=== PATIENT | male | born 1950 | race Caucasian/White ===

== ENCOUNTER 2018-01-26 20:48 | Emergency (ER) | payer OTHER ==
[~2018-01-26 20:48] MED LIST: ASPI-1005 PO; CLOP75TA14 PO; LISI-617 PO; SIMV10TA6 PO
[2018-01-26 21:31] LABS: BASOPHILS % (AUTO) 0.3 % (0.0-5.0); EOSINOPHILS % (AUTO) 3.8 % (0.0-8.0); HEMATOCRIT 38.2 % (42-54); LYMPHOCYTES % (AUTO) 26.8 % (21.0-51.0); MEAN CORPUSCULAR HEMOGLOBIN 31.9 pg (27.0-33.0); MEAN CORPUSCULAR HGB CONC 34.1 g/dL (32.0-36.0); MEAN CORPUSCULAR VOLUME 93.6 fL (79-99); MONOCYTES % (AUTO) 11.3 % (3.0-13.0); NEUTROPHILS % (AUTO) 57.8 % (40.0-77.0); NUCLEATED RED BLOOD CELLS 0.1 % (0.0-0.19); PLATELET COUNT (AUTO) 264 K/uL (130-400); RED BLOOD CELL COUNT(AUTO) 4.08 MIL/uL (4.50-6.20); RED CELL DISTRIBUTION WIDTH 13.6 % (11.0-15.5); WHITE BLOOD COUNT (AUTO) 11.1 K/uL (4.8-10.8)
[2018-01-26 21:45] LABS: CREATININE 1.1 mg/dL (0.5-1.5); POTASSIUM 3.4 mmol/L (3.5-5.1)
[2018-01-26 21:49] LABS: ALBUMIN 3.5 g/dL (3.5-5.0); BILIRUBIN,TOTAL 0.4 mg/dL (0.2-1.0)
[2018-01-26 22:10] LABS: INR 0.93 (0.85-1.15); PARTIAL THROMBOPLASTIN TIME 38.7 SEC (26.3-35.5); PROTHROMBIN TIME 9.8 SEC (9.6-11.6)
== END 2018-01-26 22:07 | disposition home or self-care (01) ==
LOC: EDH 20:48
DX: I10 Essential (primary) hypertension (principal); E78.5 Hyperlipidemia, unspecified; Z85.09 Personal history of malignant neoplasm of other digestive organs; Z79.01 Long term (current) use of anticoagulants
CPT/HCPCS: 36415; 71045; 80053; 83605; 85025; 85610; 85730; 87040; 87804; 93005

== ENCOUNTER → 2019-07-05 | Outpatient (CLI) | payer OTHER ==
[~2019-07-05] VITALS: Ht 188 cm; Wt 99.8 kg
[~2019-07-05] MED LIST changes: -ASPI-1005 PO; +ASPI-1181 PO; +ATOR20TA65 PO; +CARAL PO; +CARV6.25 PO; -CLOP75TA14 PO; +DILT180C89 PO; +DRON400T2 PO; +ESOM40CA54 PO; +FLUT16H NASAL; +FLUT1DIS5 IH; +FURO40TA5 PO; +IOHEXOL 350 MG/ML 100ML INFUS..BTL IV ONE; -LISI-617 PO; +MONT10TA26 PO; +NICO4GUM35 BC; +OLME20TA22 PO; +RIVA20TA PO; +ROFL250T PO; +ROFL500T PO; -SIMV10TA6 PO; +SIMV5TAB58 PO; +TIOT18CA3 IH
[2019-07-05 12:00] VITALS: BP 131/83
== END | disposition home or self-care (01) ==
LOC: RAH 09:21
PROVIDERS: ATTEND Internal Medicine Cardiovascular Disease
DX: I48.0 Paroxysmal atrial fibrillation (principal); J43.2 Centrilobular emphysema; J98.11 Atelectasis
CPT/HCPCS: 71275; Q9967 ×2

== ENCOUNTER 2019-07-07 05:38 | Observation (INO) | payer OTHER ==
[2019-07-05 11:56] LABS: BASOPHILS % (AUTO) 1.3 % (0.0-5.0); EOSINOPHILS % (AUTO) 2.4 % (0.0-8.0); HEMATOCRIT 41.2 % (42-54); LYMPHOCYTES % (AUTO) 26.7 % (21.0-51.0); MEAN CORPUSCULAR HEMOGLOBIN 31.9 pg (27.0-33.0); MEAN CORPUSCULAR HGB CONC 33.3 g/dL (32.0-36.0); MONOCYTES % (AUTO) 12.3 % (3.0-13.0); NEUTROPHILS % (AUTO) 57.1 % (40.0-77.0); PLATELET COUNT (AUTO) 278 K/uL (130-400); RED BLOOD CELL COUNT(AUTO) 4.29 MIL/uL (4.50-6.20); RED CELL DISTRIBUTION WIDTH 13.3 % (11.0-15.5)
[2019-07-05 13:15] LABS: CREATININE 1.6 mg/dL (0.5-1.5); POTASSIUM 4.2 mmol/L (3.5-5.1)
[2019-07-06 12:00] VITALS: BP 131/83
--- NOTE | 2019-07-06 13:20 | NUR ---
RE: ABNORMAL LABS REPORTED ABNORMAL LABS (BUN 25, CREAT 1.6 AND H/H 13.7/41.2) TO MAGGIE FARAH. PER CELINE, NO NEW ORDERS. OK TO PROCEED WITH ABLATION SCHEDULED.
[2019-07-07] VITALS (20 sets, daily range): BP systolic 114–153; BP diastolic 67–91
[~2019-07-07 05:38] MED LIST changes: -ASPI-1181 PO; -CARAL PO; -FLUT1DIS5 IH; -IOHEXOL 350 MG/ML 100ML INFUS..BTL IV ONE; -OLME20TA22 PO; -ROFL500T PO; -SIMV5TAB58 PO; -TIOT18CA3 IH
--- NOTE | 2019-07-07 06:52 | NUR ---
POTENTIAL FOR INFECTION: SHAVED FROM UMBILICUS TO BILATERAL GROIN AND BILATERAL KNEE PER AIME HATHAWAY.
[2019-07-07 06:57] LABS: INR 1.03 (0.85-1.15); PARTIAL THROMBOPLASTIN TIME 41.2 SEC (26.3-35.5); PROTHROMBIN TIME 11.1 SEC (9.6-11.6)
[2019-07-07] MEDS: SODIUM CHLORIDE 0.9% 1000ML 1,000 ML IV SCH ×2 (07:05→15:05)
--- NOTE | 2019-07-07 07:05 | NUR ---
POTENTIAL FOR INFECTION: WIPED FROM UMBILICUS AREA TO BILATERAL GROIN AND KNEE WITH URIAH: 2% CHLORHEXIDINE GLUCONATE CLOTH PATIENTS PRE-OP SKIN PREP PER AIME HATHAWAY.
[2019-07-07] MEDS ORDERED: ONDANSETRON HCL 4 MG/2 ML VIAL ONE (07:11)
[2019-07-07] MEDS ORDERED: PHENYLEPHRINE HCL 10 MG/ML 1ML VIAL IV ONE ×4 (07:11→09:46)
[2019-07-07] MEDS ORDERED: MIDAZOLAM HCL 1 MG/ML 2ML VIAL ONE (07:11)
[2019-07-07] MEDS ORDERED: LIDOCAINE PF 2% 5ML ABBOJECT ONE (07:11)
[2019-07-07] MEDS ORDERED: PROPOFOL 10 MG/ML 20ML VIAL IV ONE (07:12)
[2019-07-07] MEDS ORDERED: ROCURONIUM 10MG/1ML SYR 10 MG/ML ML ONE (07:12)
[2019-07-07] MEDS ORDERED: LIDOCAINE HCL 2% 20ML ONE (07:45)
[2019-07-07] MEDS ORDERED: FENTANYL CITRATE PF 50 MCG/1 ML 2ML VIAL ONE (07:59)
[2019-07-07] MEDS ORDERED: HEPARIN SODIUM 1000UNIT/ML 10ML VIAL ONE ×2 (08:01→08:44)
[2019-07-07] MEDS ORDERED: ATROPINE SULFATE 0.4 MG/ML 1 ML VIAL IJ ONE (08:42)
[2019-07-07] MEDS ORDERED: EPINEPHRINE 1 MG/ML AMPULE ONE (08:43)
[2019-07-07] MEDS ORDERED: GLYCOPYRROLATE 1 MG/5 ML SYRINGE ONE (08:50)
[2019-07-07] MEDS ORDERED: ISOPROTERENOL HCL 0.2 MG/ML AMP/VIAL/BAG ONE (08:56)
[2019-07-07] MEDS ORDERED: PROTAMINE SULFATE 10 MG/ML 25ML VIAL IV ONE (11:54)
[2019-07-07] MEDS ORDERED: NEOSTIGMINE 5MG/5ML SYR IV ONE (12:29)
[2019-07-07] MEDS ORDERED: ACETAMINOPHEN-CODEINE 300/30MG TAB PO PRN (14:30)
--- NOTE | 2019-07-07 14:30 | NUR ---
STATUS PT RECEIVED FROM TARIFF SUPERVISOR VIA BED @ 2869, S/P CARDIAC ABLATION BY DR SMITH. BILATERAL GROIN DSG DRY & INTACT. PUNCTURES SITES SOFT, NON-TENDER. NO BLEEDING, NO HEMATOMA NOTED. (+) WEAK BILATERAL PEDAL PULSES. BLE PINK & WARM TO TOUCH. PT INFORMED TO MAINTAIN BEDREST X 4 HRS. POSITIONED FOR MAX COMFORT, C/O OF BACK PAIN. TELE: CHELSIE. EKG TO BE DONE @ THIS TIME. 16 FR CLAROS CATH PATENT & DRAINING. ORIENTED TO . INSTRUCTED TO CALL FOR ASSISTANCE. CALL OSBALDO W/IN REACH.
[2019-07-07] MEDS: ACETAMINOPHEN-CODEINE 300/30MG TAB PO PRN ×2 (15:01→22:55)
[2019-07-07] MEDS: SUCRALFATE 1 GM/10 ML PO SCH ×2 (15:04→16:43)
--- NOTE | 2019-07-07 16:45 | NUR ---
STATUS 4 HR BEDREST AFTER CARDIAC ABLATION COMPLETE. BILATERAL GROIN DSG DRY & INTACT. PUNCTURE SITES SOFT, NON-TENDER. NO BLEEDING, NO HEMATOMA NOTED. (+) BILATERAL WEAK PEDAL PULSES. BLE PINK & WARM TO TOUCH. PT ASSISTED TO SIT UP IN BED. TOLERATED WELL. NO DISTRESS NOTED. PT DENIES INCISIONAL PAIN. INSTRUCTED TO CALL FOR ASSISTANCE. CALL OSBALDO W/IN REACH.
[2019-07-07] MEDS ORDERED: APIXABAN 5 MG TABLET PO SCH (17:00)
--- NOTE | 2019-07-07 17:55 | NUR ---
STATUS 16 FR CLAROS CATH DC'D @ THIS TIME. NO RESISTANCE @ W/DRAWAL. CATHETER TIP INTACT. PT INFORMED TO NOTIFY STAFF OF 1sT VOID AFTER CATHETER REMOVAL. URINAL @ BEDSIDE.
[2019-07-07] MEDS: DRONEDARONE HYDROCHLORIDE 400 MG TABLET PO SCH (20:15)
[2019-07-07] MEDS: CARVEDILOL 6.25 MG TABLET PO SCH (20:15)
[2019-07-07] MEDS ORDERED: MONTELUKAST SODIUM 10 MG TAB PO SCH (21:00)
[2019-07-07] MEDS ORDERED: FLUTICASONE PROPIONATE 50MCG/SPRAY 16 GM BOTTLE NS SCH (21:00)
[2019-07-07] MEDS ORDERED: PANTOPRAZOLE SODIUM 40 MG TABLET.DR PO SCH (21:00)
[2019-07-07] MEDS ORDERED: ATORVASTATIN CALCIUM 20 MG TABLET PO SCH (21:00)
[2019-07-08] VITALS: BP 124/76
[2019-07-08] MEDS: SUCRALFATE 1 GM/10 ML PO SCH ×2 (00:45→06:43)
[2019-07-08 03:55] VITALS: BP_SYST 132; BP_SYST 162; BP_DIAS 72; BP_DIAS 76
[2019-07-08 08:13] VITALS: BP 135/76
[2019-07-08] MEDS: CARVEDILOL 6.25 MG TABLET PO SCH (08:33)
[2019-07-08] MEDS: DRONEDARONE HYDROCHLORIDE 400 MG TABLET PO SCH (08:34)
[2019-07-08] MEDS ORDERED: DILTIAZEM HCL 180 MG CAP.SR.24H PO SCH (09:00)
[2019-07-08] MEDS ORDERED: RIVAROXABAN 20 MG TABLET PO SCH (09:00)
[2019-07-08] MEDS ORDERED: FUROSEMIDE 40 MG TABLET PO SCH (09:00)
[2019-07-08] MEDS ORDERED: CARAL PO (10:27)
[2019-07-08 11:47] VITALS: BP 132/81
--- NOTE | 2019-07-08 13:22 | NUR ---
[id number] patient signed SCHOFIELD Letter, I faxed SCHOFIELD Letter to [phone] and placed in chart under consent tab
--- NOTE | 2019-07-08 15:17 | NUR ---
Patient in no apparent distress. No complaints of pain or SOB or chest pain. Discharge instructions have been given. Patient has verbalized understanding. Patient is being discharged at this time.
== END 2019-07-08 15:35 | disposition home or self-care (01) ==
LOC: DAH 05:38 → DAHIP 05:39 → 2AH 14:10
PROVIDERS: ADMIT Internal Medicine; ATTEND Internal Medicine
DX: I48.0 Paroxysmal atrial fibrillation (principal); J44.9 Chronic obstructive pulmonary disease, unspecified; Z79.899 Other long term (current) drug therapy
CPT/HCPCS: 36415 ×2; 80048; 85025; 85347 ×6; 85610; 85730; 93005 ×2; 93613; 93622; 93656; 93662; A4215 ×2; A4221; A4222; A4223; A4344; A4649; A4663; A5120; C1730; C1731; C1732; C1893 ×2; C1894 ×4; G0378 ×20; J1644 ×5; J2001; J2250; J2370 ×4; J2405; J2704; J2710; J2720; J3010; J3490 ×3; J7030 ×2; 93621; 93657; J0171; J0461

== ENCOUNTER 2019-07-10 20:57 | Observation (INO) | payer OTHER ==
[~2019-07-10 20:57] MED LIST changes: +CARAL PO
[2019-07-10 21:41] LABS: BASOPHILS % (AUTO) 1.1 % (0.0-5.0); EOSINOPHILS % (AUTO) 5.2 % (0.0-8.0); HEMATOCRIT 38.4 % (42-54); LYMPHOCYTES % (AUTO) 25.6 % (21.0-51.0); MEAN CORPUSCULAR HEMOGLOBIN 31.9 pg (27.0-33.0); MEAN CORPUSCULAR HGB CONC 35.2 g/dL (32.0-36.0); MEAN CORPUSCULAR VOLUME 90.8 fL (79-99); MONOCYTES % (AUTO) 10.6 % (3.0-13.0); NEUTROPHILS % (AUTO) 57.2 % (40.0-77.0); PLATELET COUNT (AUTO) 302 K/uL (130-400); RED BLOOD CELL COUNT(AUTO) 4.23 MIL/uL (4.50-6.20); RED CELL DISTRIBUTION WIDTH 12.6 % (11.0-15.5); WHITE BLOOD COUNT (AUTO) 10.5 K/uL (4.8-10.8)
[2019-07-10 21:55] LABS: CREATININE 1.5 mg/dL (0.5-1.5); POTASSIUM 3.7 mmol/L (3.5-5.1)
[2019-07-10 22:00] LABS: ALBUMIN 3.8 g/dL (3.5-5.0); BILIRUBIN,TOTAL 0.4 mg/dL (0.2-1.0); TOTAL PROTEIN, SERUM 7.4 g/dL (6.0-8.3)
[2019-07-10 22:15] LABS: INR 1.07 (0.85-1.15); PARTIAL THROMBOPLASTIN TIME 46.9 SEC (26.3-35.5); PROTHROMBIN TIME 11.5 SEC (9.6-11.6)
[2019-07-10] MEDS ORDERED: ASPIRIN 325 MG TABLET ONE (22:33)
[2019-07-10] MEDS ORDERED: FUROSEMIDE 10 MG/ML 4ML VIAL ONE (23:53)
[2019-07-11] MEDS ORDERED: DIPHENHYDRAMINE HCL 25 MG CAPSULE PO PRN (01:15)
[2019-07-11] MEDS ORDERED: NITROGLYCERIN 0.4 MG SL TAB SL PRN (01:15)
[2019-07-11] MEDS ORDERED: ACETAMINOPHEN 325 MG TAB PO PRN ×2 (01:15)
[2019-07-11] MEDS ORDERED: IPRATROPIUM/ALBUTEROL SULFATE 3 ML SOLUTION IH PRN (01:15)
[2019-07-11] MEDS ORDERED: ONDANSETRON HCL 4 MG/2 ML VIAL IV PRN (01:15)
[2019-07-11 01:59] LABS: MAGNESIUM 1.8 mg/dL (1.80-2.40)
[2019-07-11 02:22] LABS: TROPONIN I 0.07 ng/mL (0.00-0.06)
[2019-07-11 02:45] LABS: APPEARANCE,URINE Clear (CLEAR); BILIRUBIN,URINE Negative (NEGATIVE); COLOR,URINE Yellow (YELLOW); GLUCOSE, URINE (UA) Negative (NEGATIVE); KETONES,URINE Negative (NEGATIVE); LEUKOCYTE ESTERASE ,URINE Negative (NEGATIVE); NITRATE,URINE Negative (NEGATIVE); OCCULT BLOOD,URINE Negative (NEGATIVE); PROTEIN,URINE Negative (NEGATIVE)
[2019-07-11 03:41] LABS: AMPHET/METH SCREEN,URINE NEGATIVE (NEGATIVE); BARBITURATE SCREEN, URINE NEGATIVE (NEGATIVE); BENZODIAZEPINES SCREEN,URINE NEGATIVE (NEGATIVE)
[2019-07-11 04:09] LABS: CANNABINOID SCREEN,URINE NEGATIVE (NEGATIVE); COCAINE SCREEN,URINE NEGATIVE (NEGATIVE); OPIATE SCREEN,URINE NEGATIVE (NEGATIVE); PHENCYCLIDINE SCREEN,URINE NEGATIVE (NEGATIVE)
[2019-07-11 06:04] LABS: HEMATOCRIT 38.7 % (42-54); MEAN CORPUSCULAR HEMOGLOBIN 32.5 pg (27.0-33.0); MEAN CORPUSCULAR HGB CONC 35.4 g/dL (32.0-36.0); MEAN CORPUSCULAR VOLUME 91.7 fL (79-99); PLATELET COUNT (AUTO) 270 K/uL (130-400); RED BLOOD CELL COUNT(AUTO) 4.22 MIL/uL (4.50-6.20); RED CELL DISTRIBUTION WIDTH 12.5 % (11.0-15.5); WHITE BLOOD COUNT (AUTO) 10.9 K/uL (4.8-10.8)
[2019-07-11 06:26] LABS: TROPONIN I 0.07 ng/mL (0.00-0.06)
[2019-07-11 06:58] LABS: BASOPHILS % (MANUAL) 1 % (0-2); EOSINOPHILS % (MANUAL) 5 % (1-6); LYMPHOCYTES % (MANUAL) 24 % (22-44); MONOCYTES % (MANUAL) 13 % (2-9); SEGMENTED NEUTROPHILS % 57 % (40-70)
[2019-07-11 06:59] LABS: ALBUMIN 3.7 g/dL (3.5-5.0); BILIRUBIN,TOTAL 0.6 mg/dL (0.2-1.0); CREATININE 1.3 mg/dL (0.5-1.5); MAN.DIFF COMMENT-IMPRESSION MANUAL DIFFERENTIAL; PLATELET MORPHOLOGY COMMENT ADEQUATE; POTASSIUM 3.7 mmol/L (3.5-5.1); TOTAL PROTEIN, SERUM 7.8 g/dL (6.0-8.3)
[2019-07-11] MEDS ORDERED: ACETAMINOPHEN 325 MG TAB ONE (07:18)
[2019-07-11 08:35] VITALS: BP 126/82
[2019-07-11] MEDS ORDERED: ROFL500T PO (08:46)
[2019-07-11] MEDS ORDERED: ATORVASTATIN CALCIUM 20 MG TABLET PO SCH ×2 (09:45→21:00)
[2019-07-11] MEDS ORDERED: ASPIRIN 81MG TAB.CHEW PO SCH (09:45)
[2019-07-11] MEDS: DILTIAZEM HCL 180 MG CAP.SR.24H PO SCH (10:19)
[2019-07-11] MEDS: RIVAROXABAN 20 MG TABLET PO SCH (10:20)
[2019-07-11] MEDS: CARVEDILOL 6.25 MG TABLET PO SCH ×2 (10:20→20:11)
[2019-07-11] MEDS: FAMOTIDINE/PF 20 MG/2 ML VIAL IV SCH (10:20)
[2019-07-11] MEDS: FUROSEMIDE 40 MG TABLET PO SCH (10:21)
[2019-07-11 11:00] VITALS: BP 126/82
--- NOTE | 2019-07-11 14:34 | NUR ---
DCP CM met with pt discussed dc plans. Pt is independent prior to admission, lives at home alone, friend lives close by. Denies any equipments/services. Feels safe to go back home, still drives, friend Nora able to assist with transportation once dc. DC plan to home once stable. CM to cont to follow up. Addendum: 07/11/19 at 1435 by CHUCKY WELSH LVN CM Amended: Links added.
[2019-07-11 16:00] VITALS: BP 122/74
[2019-07-11] MEDS: DRONEDARONE HYDROCHLORIDE 400 MG TABLET PO SCH (20:10)
[2019-07-11 20:39] VITALS: BP 129/84
[2019-07-11] MEDS ORDERED: MONTELUKAST SODIUM 10 MG TAB PO SCH (21:00)
--- NOTE | 2019-07-11 21:19 | NUR ---
Cardiology Clearance Notified PMD of normal 2D echo and cardiac clearance. Reminded of plan for dc if cleared. PMD for further orders.
[2019-07-11] MEDS ORDERED: IBUPROFEN 800 MG TAB ONE (23:37)
[2019-07-11 23:45] VITALS: BP 130/79
[2019-07-11] MEDS ORDERED: IBUPROFEN 400 MG TABLET PO SCH (23:45)
[2019-07-12] MEDS ORDERED: IBUPROFEN 800 MG TAB PO SCH (00:15)
[2019-07-12 04:18] VITALS: BP 125/75
[2019-07-12] MEDS: FAMOTIDINE/PF 20 MG/2 ML VIAL IV SCH (09:00)
[2019-07-12] MEDS ORDERED: ASPIRIN 81MG TAB.CHEW PO SCH (09:00)
[2019-07-12] MEDS: RIVAROXABAN 20 MG TABLET PO SCH (09:28)
[2019-07-12 09:29] VITALS: BP 101/63
[2019-07-12] MEDS: CARVEDILOL 6.25 MG TABLET PO SCH (09:29)
[2019-07-12] MEDS: DRONEDARONE HYDROCHLORIDE 400 MG TABLET PO SCH (09:30)
[2019-07-12] MEDS: DILTIAZEM HCL 180 MG CAP.SR.24H PO SCH (09:31)
[2019-07-12] MEDS: FUROSEMIDE 40 MG TABLET PO SCH (09:31)
--- NOTE | 2019-07-12 12:00 | NUR ---
DISCHARGE PATIENT GIVEN DISCHARGE INSTRUCTIONS AND EDUCATION ON FOLLOW UP APPOINTMENTS. PATIENT VERBALIZED UNDERSTANDING OF ALL EDUCATION GIVEN VIA TEACH BACK. NO DISTRESS NOTED UPON DISCHARGE. ALL BELONGINGS TAKEN WITH.
--- NOTE | 2019-07-12 13:38 | NUR ---
[id number] patient signed IM Letter, I faxed IM Letter to [phone] and placed in chart under consent tab
== END 2019-07-12 14:03 | disposition home or self-care (01) ==
LOC: EDH 20:57 → EDHIP 07-11 01:12 → 4DH 07-11 08:25
PROVIDERS: ADMIT Internal Medicine; ATTEND Internal Medicine
DX: J32.0 Chronic maxillary sinusitis (principal); R07.89 Other chest pain; I48.20 Chronic atrial fibrillation, unspecified; R00.2 Palpitations; D68.59 Other primary thrombophilia; N17.9 Acute kidney failure, unspecified; J44.9 Chronic obstructive pulmonary disease, unspecified; I25.2 Old myocardial infarction; I11.0 Hypertensive heart disease with heart failure; I50.9 Heart failure, unspecified; E78.5 Hyperlipidemia, unspecified; I25.10 Atherosclerotic heart disease of native coronary artery without angina pectoris; Z79.82 Long term (current) use of aspirin; Z79.01 Long term (current) use of anticoagulants; Z95.5 Presence of coronary angioplasty implant and graft; Z90.81 Acquired absence of spleen; Z90.49 Acquired absence of other specified parts of digestive tract
CPT/HCPCS: 36415 ×2; 70450; 71045; 80053 ×2; 80061; 80305; 81003; 82550 ×3; 83036; 83735 ×2; 83874 ×3; 83880; 84443; 84484 ×3; 85025 ×2; 85610; 85730; 93005 ×2; 93306; 93356; 93880; 94640; 94664; 96374; 99291; G0378 ×24; G0480; J1940; J3490

== ENCOUNTER 2019-10-11 06:53 | Day surgery (SDC) | payer OTHER ==
[2019-10-07 10:33] VITALS: BP 103/66
[2019-10-07 12:35] LABS: BASOPHILS % (AUTO) 1.1 % (0.0-5.0); EOSINOPHILS % (AUTO) 2.1 % (0.0-8.0); HEMATOCRIT 37.7 % (42-54); LYMPHOCYTES % (AUTO) 32.3 % (21.0-51.0); MEAN CORPUSCULAR HEMOGLOBIN 32.2 pg (27.0-33.0); MEAN CORPUSCULAR HGB CONC 34.7 g/dL (32.0-36.0); MEAN CORPUSCULAR VOLUME 92.6 fL (79-99); MONOCYTES % (AUTO) 13.6 % (3.0-13.0); NEUTROPHILS % (AUTO) 50.6 % (40.0-77.0); PLATELET COUNT (AUTO) 278 K/uL (130-400); RED BLOOD CELL COUNT(AUTO) 4.07 MIL/uL (4.50-6.20); RED CELL DISTRIBUTION WIDTH 13.2 % (11.0-15.5); WHITE BLOOD COUNT (AUTO) 11.4 K/uL (4.8-10.8)
[2019-10-07 12:48] LABS: CREATININE 1.5 mg/dL (0.5-1.5); POTASSIUM 4.2 mmol/L (3.5-5.1)
--- NOTE | 2019-10-10 15:51 | NUR ---
labs wbc 11.[address] ngo. pt states checked his temp at home today and it was 99.4, pt denies any other discomforts. all that information given to Chary SOLO to report to dr. ngo , waiting for call back.
[~2019-10-11] VITALS: Ht 185.4 cm; Wt 102.1 kg
[~2019-10-11 06:53] MED LIST changes: -CARAL PO; +FURO20TA4 PO; -FURO40TA5 PO; -NICO4GUM35 BC; -ROFL250T PO; +ROFL500T PO
[2019-10-11] MEDS ORDERED: SODIUM CHLORIDE 0.9% 1000ML 1,000 ML IV ONE (07:06)
[2019-10-11 08:12] VITALS: BP 110/74
--- NOTE | 2019-10-11 08:26 | NUR ---
PROCEDURE PT HERE FOR PROCEDURE. DENIES ANY PAIN AT THIS PAIN. GIRLFRIEND AT BEDSIDE.
[2019-10-11] MEDS ORDERED: [UNRECOGNIZED DRUG - OTHER] PO (08:31)
[2019-10-11] MEDS ORDERED: LIDOCAINE PF 2% 5ML ABBOJECT ONE (09:27)
[2019-10-11] MEDS ORDERED: PROPOFOL 10 MG/ML 20ML VIAL IV ONE (09:27)
--- NOTE | 2019-10-11 10:00 | NUR ---
CARDIOVERSION Danny CHOWDHURY, NIPPING MACHINE OPERATOR IN ROOM FOR CARDIOVERSION. PERFORMED. SHOCKED PT AT 200 JOULES AT 1001 THE SHOCKED PT WITH JOULES 300. CONVERTED TO SINUS. WILL CONTINUE TO MONITOR POST OP.
[2019-10-11 10:45] VITALS: BP 108/61
[2019-10-11 11:00] VITALS: BP 112/61
--- NOTE | 2019-10-11 11:15 | NUR ---
DISCHARGED ORAL AND WRITTEN DISCHARGE INSTRUCTIONS GIVEN TO PT AND PTS GIRLFRIEND. PT DENIES ANY PaIN, SOB. NO OTHER QUESTIONS AT THIS TIME
== END 2019-10-11 11:15 | disposition home or self-care (01) ==
LOC: DAH 06:53
PROVIDERS: ATTEND Internal Medicine Cardiovascular Disease
DX: I48.19 Other persistent atrial fibrillation (principal); J44.9 Chronic obstructive pulmonary disease, unspecified; I25.2 Old myocardial infarction; I25.10 Atherosclerotic heart disease of native coronary artery without angina pectoris; K21.9 Gastro-esophageal reflux disease without esophagitis; M19.90 Unspecified osteoarthritis, unspecified site; I73.9 Peripheral vascular disease, unspecified; Z79.01 Long term (current) use of anticoagulants; Z79.899 Other long term (current) drug therapy; Z11.59 Encounter for screening for other viral diseases
CPT/HCPCS: 36415; 80048; 85025; 92960; 93005 ×2; A4215; A4216; A4221; A4222; A4223 ×3; A4606; A4663; J2001; J2704; J7030; U0003

== ENCOUNTER 2019-10-22 20:47 | Emergency (ER) | payer OTHER ==
[2019-10-22] MEDS ORDERED: CYCLOBENZAPRINE HCL 10 MG TABLET ONE (23:13)
[2019-10-22] MEDS ORDERED: TRAMADOL HCL 50 MG TABLET ONE (23:14)
== END 2019-10-23 01:22 | disposition home or self-care (01) ==
LOC: EDH 20:47
DX: M54.2 Cervicalgia (principal); R13.10 Dysphagia, unspecified; R00.1 Bradycardia, unspecified; R06.02 Shortness of breath; R50.9 Fever, unspecified; R05 Cough; R51 Headache; G89.29 Other chronic pain; E78.5 Hyperlipidemia, unspecified; I10 Essential (primary) hypertension; J44.9 Chronic obstructive pulmonary disease, unspecified; I48.91 Unspecified atrial fibrillation; I25.10 Atherosclerotic heart disease of native coronary artery without angina pectoris; Z98.890 Other specified postprocedural states; Z87.891 Personal history of nicotine dependence; Z88.8 Allergy status to other drugs, medicaments and biological substances

== ENCOUNTER → 2020-02-03 | Outpatient (CLI) | payer OTHER ==
[~2020-02-03] MED LIST changes: +[UNRECOGNIZED DRUG - OTHER] PO
== END | disposition home or self-care (01) ==
LOC: EDSTATUS 11-10 11:20 → RAH 12:12
PROVIDERS: ATTEND Internal Medicine Cardiovascular Disease
DX: I48.19 Other persistent atrial fibrillation (principal); I73.9 Peripheral vascular disease, unspecified
CPT/HCPCS: 93922

== ENCOUNTER → 2020-04-16 | Outpatient (CLI) | payer OTHER ==
[~2020-04-16] MED LIST changes: -MONT10TA26 PO; +MONT10TA96 PO
== END | disposition home or self-care (01) ==
LOC: RAH 12:12
PROVIDERS: ATTEND Internal Medicine
DX: M51.34 Other intervertebral disc degeneration, thoracic region (principal); I27.22 Pulmonary hypertension due to left heart disease
CPT/HCPCS: 71046

== ENCOUNTER → 2023-08-14 | Outpatient (CLI) | payer OTHER ==
[~2023-08-14] MED LIST changes: +ATOR10 PO; -ATOR20TA65 PO; -DILT180C89 PO; -DRON400T2 PO; -ESOM40CA54 PO; +IOHEXOL 350 MG/ML 100ML INFUS..BTL IV ONE; +LORA10TA7 PO; +METH4TAB3 PO; -MONT10TA96 PO; -ROFL500T PO; -[UNRECOGNIZED DRUG - OTHER] PO
== END | disposition home or self-care (01) ==
LOC: RAH 07:51
PROVIDERS: ATTEND Internal Medicine Cardiovascular Disease
DX: I72.3 Aneurysm of iliac artery (principal); I77.810 Thoracic aortic ectasia; J98.11 Atelectasis; J44.9 Chronic obstructive pulmonary disease, unspecified; I70.0 Atherosclerosis of aorta; K76.0 Fatty (change of) liver, not elsewhere classified; N28.1 Cyst of kidney, acquired
CPT/HCPCS: 74175; 71275; Q9967 ×2

== ENCOUNTER → 2023-08-31 | Outpatient (CLI) | payer OTHER ==
[~2023-08-31] MED LIST changes: -IOHEXOL 350 MG/ML 100ML INFUS..BTL IV ONE
[2023-08-31] MEDS: REGADENOSON 0.4 MG/5 ML PF SYG IVP SCH (14:50)
== END | disposition home or self-care (01) ==
LOC: RAH 11:08
PROVIDERS: ATTEND Internal Medicine Cardiovascular Disease
DX: R06.02 Shortness of breath (principal); R06.09 Other forms of dyspnea
CPT/HCPCS: 78452; 96374; 93017; J2785; A9500 ×2